=== PATIENT | female | born 1990 | race Two or more races ===

== ENCOUNTER 2025-10-09 05:47 | Inpatient (IN) | payer OTHER ==
[~2025-10-09] VITALS: Ht 165.1 cm; Wt 109.9 kg
--- NOTE | 2025-10-09 06:56 | ED.PDOC ---
GI ASSESSMENT HPI Comments This is a 35 year-old female who presents to the ED with a chief complaint of R rib pain, N/V, and constant headache as of 1800 last night. Patient reports R rib pain is constant, radiating to back, exacerbated with food intake, with no associated relieving factors. Patient additionally reports giving X2 weeks ago, . Patient has no other complaints at this time and otherwise denies further associated symptoms of dizziness, weakness, fever, diarrhea, or hematemesis. Chief Complaint: Rib Pain Time Seen by MD: 06:41 Reviewed Notes: Medications, Allergies Allergies: Coded Allergies: NO KNOWN ALLERGIES (Unverified , 10/09/25) Information Source: Patient Mode of Arrival: Ambulatory Timing: Hours Duration: Since onset Severity: Moderate Associated sign and symptoms: Nausea, Vomiting, Abdominal Pain, Other (headache) Past Medical History PAST MEDICAL HISTORY: HTN Surgical History: Denies all surgeries 1 Para 1 Social History Smoker: Non-Smoker Alcohol: Denies ETOH Use Drugs: Denies Drug Use Lives In: Home Constitutional: denies: chills, diaphoresis, fatigue, fever, malaise, sweats, weakness, others EENTM: denies: blurred vision, double vision, ear bleeding, ear discharge, ear drainage, ear pain, ear ringing, eye pain, eye redness, hearing loss, mouth pain, mouth swelling, nasal discharge, nose bleeding, nose congestion, nose pain, photophobia, tearing, throat pain, throat swelling, voice changes, others Respiratory: denies: cough, hemoptysis, orthopnea, SOB at rest, shortness of breath, SOB with excertion, stridor, wheezing, others Cardiovascular: denies: chest pain, dizzy spells, diaphoresis, Dyspnea on exertion, edema, irregular heart beat, left arm pain, lightheadedness, palpitati ons, PND, syncope, others Gastrointestinal: reports: abdominal pain, nausea, vomiting; denies: abdomen distended, blood streaked bowels, constipated, diarrhea, dysphagia, difficulty swallowing, hematemesis, melena, poor appetite, poor fluid intake, rectal bleeding, rectal pain, others Genitourinary: denies: abnormal vagina bleeding, burning, dyspareunia, dysuria, flank pain, frequency, hematuria, incontinence, pain, , vagina discharge, urgency, others Neurological: reports: headache; denies: dizziness, fainting, left sided numbness, left sided weakness, numbness, paresthesia, pre-existing deficit, right sided numbness, right sided weakness, seizure, speech problems, tingling, tremors, weakness, others Musculoskeletal: denies: back pain, gout, joint pain, joint swelling, muscle pain, muscle stiffness, neck pain, others Integumetry: denies: bruises, change in color, change in hair/nails, dryness, laceration, lesions, lumps, rash, wounds, others Allergic/Immunocompromised: denies: Difficulty Healing, Frequent Infections, Hives, Itching, others Hematologic/Lymphatic: denies: anemia, blood clots, easy bleeding, easy bruising, swollen glands, others Endocrine: denies: excessive hunger, excessive sweating, excessive thirst, excessive urination, flushing, intolerance to cold, intolerance to heat, unexplained weight gain, unexplained weight loss, others Psychiatric: denies: anxiety, bipolar disorder, depression, hopeless, panic disorder, schizophrenia, sleepless, suicidal, others All Other Systems: Reviewed and Negative Physical Exam General Appearance: Mild Distress HEENT: Pharynx Normal Neck: Normal Inspection Respiratory: No Respiratory Distress Cardiovascular: No Edema Breast Exam: Deferred Gastrointestinal: RUQ, Tenderness Genitalia: Deferred Pelvic: Deferred Rectal: Deferred Extremities: No pedal edema Neurologic: No Motor Deficits Cerebellar Function: NOT DONE Reflexes: NOT DONE Skin: Normal Color Lymphatic: NOT DONE Was a procedure done? Was a procedure done?: No GI differential Dx Differential Diagnosis: Constipation, Gastritis/PUD, Gastroenteritis, Dehydration, Food Poisoning, Bacterial, Parasitic, Viral X-Ray, Labs, Meds, VS Vital Signs Date Time Temp Pulse Resp B/P (MAP) Pulse Ox O2 Delivery O2 Flow Rate FiO2 10/09/25 09:31 98.2 70 16 140/94 (109) 97 98.2 10/09/25 08:06 97 Room Air* 0 21 10/09/25 07:25 97.9 70 18 148/88 (108) 98 97.9 10/09/25 07:25 70 18 98 Room Air 10/09/25 05:48 97.7 83 18 149/103 97 97.7 Lab Test 10/09/25 07:14 Range/Units White Blood Count 7.9 4.4-10.8 10^3/uL Red Blood Count 5.28 H 4.0-5.20 10^6/uL Hemoglobin 13.6 12.2-16.2 g/dL Hematocrit 40.9 36.0-46.0 % Mean Corpuscular Volume 77.5 L 80.0-100.0 fL Mean Corpuscular Hemoglobin 25.8 L 28.0-32.0 pg Mean Corpuscular Hemoglobin Concent 33.3 32.0-36.0 g/dL Red Cell Distribution Width 14.2 11.8-14.3 % Platelet Count 226 140-450 10^3/uL Mean Platelet Volume 10.6 6.9-10.8 fL Neutrophils (%) (Auto) 72.1 37.0-80.0 % Lymphocytes (%) (Auto) 21.3 10.0-50.0 % Monocytes (%) (Auto) 3.7 0.0-12.0 % Eosinophils (%) (Auto) 2.5 0.0-7.0 % Basophils (%) (Auto) 0.4 0.0-2.0 % Neutrophils # (Auto) 5.7 1.6-8.6 10 ^3/uL Lymphocytes # (Auto) 1.7 0.4-5.4 10 ^3/uL Monocytes # (Auto) 0.3 0-1.3 10 ^3/uL Eosinophils # (Auto) 0.2 0-0.8 10 ^3/uL Basophils # (Auto) 0 0-0.2 10 ^3/uL Nucleated Red Blood Cells 0.0 % Sodium Level 141 136-145 mmol/L Potassium Level 4.0 3.5-5.1 mmol/L Chloride Level 102 98-107 mmol/L Carbon Dioxide Level 26 20-31 mmol/L Anion Gap 13 5-15 Blood Urea Nitrogen 11 9-23 mg/dL Creatinine 0.60 0.550-1.02 mg/dL Glomerular Filtration Rate Calc 120 >90 mL/min BUN/Creatinine Ratio 18.3 10.0-20.0 Serum Glucose 139 H 74-106 mg/dL Calcium Level 9.5 8.7-10.4 mg/dL Total Bilirubin 1.2 H 0.2-1.0 mg/dL Aspartate Amino Transferase (AST) 209 H 13-40 U/L Alanine Aminotransferase (ALT) 120 H 7-40 U/L Alkaline Phosphatase 145 H 46-116 U/L Total Protein 7.7 5.7-8.2 g/dL Albumin 4.6 3.2-4.8 g/dL Lipase 39 12-53 U/L Current Medications Medications (Trade) Dose Ordered Sig/[place] Route Start Time Stop Time Status Last Admin Sodium Chloride 1,000 ml @ 1,000 mls/hr Q1H ONCE IV 10/09/25 06:45 10/09/25 07:44 DC 10/09/25 08:07 Ondansetron HCl (Zofran) 4 mg ONCE ONCE IV 10/09/25 06:45 10/09/25 06:46 DC 10/09/25 08:07 Famotidine (Pepcid Injection) 20 mg ONCE ONCE IV 10/09/25 06:45 10/09/25 06:46 DC 10/09/25 08:07 Ketorolac Tromethamine (Toradol Injection) 15 mg ONCE ONCE IV 10/09/25 06:45 10/09/25 06:46 DC 10/09/25 08:07 Time of 1ST Reevaluation: 07:38 Reevaluation 1ST: Unchanged Patient Education/Counseling: Diagnosis, Treatment Family Education/Counseling: No Family Present SEPSIS Sepsis Screen Date sepsis recognized/suspect: Oct 09, 2025 Time Sepsis recognized/suspect: 0553 Recent Procedure: Yes ( X 2WEEKS AGO ) On Antibiotic Therapy: No Respiratory Rate >20: No Heart Rate >90: No Temp<36 C (96.8 F) or >38.3 C: No SBP <90 or MAP <65 mmHG: No New Acute Mental Status Change: No Is the patient on CPAP, BIPAP,: No Physician Orders Urinalysis (10/09/25 06:40) Gallbladder (10/09/25 06:40) Vital Signs Date Time Temp Pulse Resp B/P (MAP) Pulse Ox O2 Delivery O2 Flow Rate FiO2 10/09/25 09:31 98.2 70 16 140/94 (109) 97 98.2 10/09/25 08:06 97 Room Air* 0 21 10/09/25 07:25 97.9 70 18 148/88 (108) 98 97.9 10/09/25 07:25 70 18 98 Room Air 10/09/25 05:48 97.7 83 18 149/103 97 97.7 Laboratory Tests Test 10/09/25 07:14 White Blood Count 7.9 10^3/uL (4.4-10.8) Medications Medications Dose Ordered Sig/[place] Route Start Time Stop Time Status Last Admin Dose Admin Famotidine 20 mg ONCE ONCE IV 10/09/25 06:45 10/09/25 06:46 DC 10/09/25 08:07 Ketorolac Tromethamine 15 mg ONCE ONCE IV 10/09/25 06:45 10/09/25 06:46 DC 10/09/25 08:07 Ondansetron HCl 4 mg ONCE ONCE IV 10/09/25 06:45 10/09/25 06:46 DC 10/09/25 08:07 Sodium Chloride 1,000 ml @ 1,000 mls/hr Q1H ONCE IV 10/09/25 06:45 10/09/25 07:44 DC 10/09/25 08:07 Departure 1 Departure Time of Disposition: 10:16 (Patient presented with abdominal pain that was concerning for possible appendicits, gastritis, cholecystitis, colitis, gastroenteritis, sbo, or orther possible surgical emergency. Data: 1. I ordered and reviewed the result of at least 3 labs including a CBC, BMP, and Urinalysis. 2. I independently interpreted the following tests: Ultrasound is concerning for cholelithiasis.Risk:This patient has a high risk of morbidity due to further diagnostic testing or treatment and may suffer from an acute abdominal process disorder. Workup reveals cholelithiasis and intractable abdominal pain and patient should be admitted for further workup. and possible expert consultation. ) Impression: Primary Impression: Intractable abdominal pain Additional Impression: Cholelithiasis Disposition: ADMITTED INPATIENT Admit to: Med Surg Condition: Guarded Critical Care Note Critical Care Time?: No Stability Stability form required: No Heart Score Heart Score: Heart Score Response (Comments) Value History N/A 0 EKG N/A 0 Age N/A 0 Risk Factors N/A 0 Troponin N/A 0 Total 0 I personally scribed for ANNA MARIE KING MD ([email or web address]) on 10/09/25 at 06:56. Electronically submitted by Sully Ayoub ([email or web address]). ANNA MARIE KING MD Oct 09, 2025 06:56
[2025-10-09 07:42] LABS: Hematocrit 40.9 % (36.0-46.0); Hemoglobin 13.6 g/dL (12.2-16.2); Mean Corpuscular Hemoglobin 25.8 pg (28.0-32.0); Mean Corpuscular Volume 77.5 fL (80.0-100.0); Nucleated Red Blood Cells % 0.0 %
[2025-10-09 07:57] LABS: Albumin 4.6 g/dL (3.2-4.8); Anion Gap 13 (5-15); BUN/Creatinine Ratio 18.3 (10.0-20.0); Bilirubin, Total 1.2 mg/dL (0.2-1.0); Blood Urea Nitrogen 11 mg/dL (9-23); Calcium 9.5 mg/dL (8.7-10.4); Carbon Dioxide 26 mmol/L (20-31); Chloride 102 mmol/L (98-107); Potassium 4.0 mmol/L (3.5-5.1); Sodium 141 mmol/L (136-145); Total Protein 7.7 g/dL (5.7-8.2)
[2025-10-09 08:05] LABS: Alanine Aminotransferase 120 U/L (7-40); Alkaline Phosphatase 145 U/L (46-116); Glucose 139 mg/dL (74-106)
[2025-10-09] MEDS: SODIUM CHLORIDE 0.9% 1,000 ML IV ONE ×2 (08:07→12:01)
[2025-10-09] MEDS: ONDANSETRON HCL 4 MG/2 ML VIAL IV ONE (08:07)
[2025-10-09] MEDS: KETOROLAC TROMETH 30 MG/ML 1ML VIAL IV ONE (08:07)
[2025-10-09] MEDS: FAMOTIDINE (10MG/ML) 2ML VL IV ONE (08:07)
[2025-10-09] MEDS ORDERED: KETOROLAC TROMETH 30 MG/ML 1ML VIAL ONE (08:09)
[2025-10-09] MEDS ORDERED: ONDANSETRON HCL 4 MG/2 ML VIAL ONE (08:12)
[2025-10-09] MEDS ORDERED: FAMOTIDINE (10MG/ML) 2ML VL IV ONE (08:12)
--- NOTE | 2025-10-09 08:44 | DVH ---
Ultrasound gallbladder INDICATION: ruq pain Technique: 2-D real-time ultrasound was performed with axial and sagittal images submitted for evaluation. FINDINGS: Liver slightly enlarged measuring 18.4 cm without mass. Spleen normal in size. Multiple gallstones.. No biliary dilatation. Right kidney measures 13.9 cm normal in size without mass stone or hydronephrosis. Limited visualization of the pancreas due to overlying bowel gas. No free fluid. No abnormalities of the aorta or inferior vena cava. IMPRESSION: 1. Cholelithiasis without signs of cholecystitis or biliary obstruction. 2. Mildly enlarged fatty liver.
[2025-10-09 08:49] LABS: Lipase 39 U/L (12-53)
[2025-10-09] MEDS ORDERED: ONDANSETRON HCL 4 MG/2 ML VIAL IV PRN ×2 (10:45→19:45)
[2025-10-09] MEDS ORDERED: MORPHINE SULFATE INJ 2 MG/ml SYRG IV PRN (10:45)
--- NOTE | 2025-10-09 10:47 | DVHHPRES ---
History of Present Illness Resident Creating Document: KELLEY NOBLE History of Present Illness Ewelina Nava is a 35-year-old female patient who presents to ED with chief complaint of sharp right upper quadrant abdominal pain associated with nausea and nonbloody vomiting with food content emesis, and diarrhea which [id number] hours before her admission at 6:00 p.m., triggered by eating fatty foods, associated with chills. Patient reports recent delivery of her child two weeks before this admission. Denies any other associated symptoms Past medical history: Hypertension, gestational diabetes Surgical history: Denies Family history: Denies Social history: Lives in [place] with family (next of kin is mother). Denies current tobacco, alcohol and other drug abuse Allergies: Denies Home medication: vitamins and labetalol, iron supplements. Patient seen and examined at bedside. Currently has no new complaints, feels better after IV medication. Patient admitted for further evaluation. Past Medical History Per HPI Past Surgical History Per HPI Family History Per HPI Past Social History Per HPI Review of Systems Review of Systems Per HPI Allergies: Coded Allergies: NO KNOWN ALLERGIES (Unverified , 10/09/25) Exam Vital Signs Vital Signs Date Time Temp Pulse Resp B/P (MAP) Pulse Ox O2 Delivery O2 Flow Rate FiO2 10/09/25 09:31 98.2 70 16 140/94 (109) 97 98.2 10/09/25 08:06 Room Air* 0 21 Exam Patient lying in bed, in no acute distress General: Lucid, afebrile, mucosae are moist Cardiovascular: Normal S1 and S2. No murmurs, gallops or rubs Respiratory: Normal ventilation mechanics. Clear lung sounds on auscultation Abdomen: Soft, mild tenderness on palpation of right upper quadrant, rest of abdomen nontender, Hoover's sign is positive, no organomegaly, normal bowel sounds MSK/skin: Mobilizes 4 limbs. Skin is dry and warm Neurological: Oriented in 3 spheres. No motor no sensitive deficits. Pupils are isocoric and reactive Labs/Xrays Labs Test 10/09/25 08:35 10/09/25 07:14 Range/Units White Blood Count 7.9 4.4-10.8 10^3/uL Red Blood Count 5.28 H 4.0-5.20 10^6/uL Hemoglobin 13.6 12.2-16.2 g/dL Hematocrit 40.9 36.0-46.0 % Mean Corpuscular Volume 77.5 L 80.0-100.0 fL Mean Corpuscular Hemoglobin 25.8 L 28.0-32.0 pg Mean Corpuscular Hemoglobin Concent 33.3 32.0-36.0 g/dL Red Cell Distribution Width 14.2 11.8-14.3 % Platelet Count 226 140-450 10^3/uL Mean Platelet Volume 10.6 6.9-10.8 fL Neutrophils (%) (Auto) 72.1 37.0-80.0 % Lymphocytes (%) (Auto) 21.3 10.0-50.0 % Monocytes (%) (Auto) 3.7 0.0-12.0 % Eosinophils (%) (Auto) 2.5 0.0-7.0 % Basophils (%) (Auto) 0.4 0.0-2.0 % Neutrophils # (Auto) 5.7 1.6-8.6 10 ^3/uL Lymphocytes # (Auto) 1.7 0.4-5.4 10 ^3/uL Monocytes # (Auto) 0.3 0-1.3 10 ^3/uL Eosinophils # (Auto) 0.2 0-0.8 10 ^3/uL Basophils # (Auto) 0 0-0.2 10 ^3/uL Nucleated Red Blood Cells 0.0 % Sodium Level 141 136-145 mmol/L Potassium Level 4.0 3.5-5.1 mmol/L Chloride Level 102 98-107 mmol/L Carbon Dioxide Level 26 20-31 mmol/L Anion Gap 13 5-15 Blood Urea Nitrogen 11 9-23 mg/dL Creatinine 0.60 0.550-1.02 mg/dL Glomerular Filtration Rate Calc 120 >90 mL/min BUN/Creatinine Ratio 18.3 10.0-20.0 Serum Glucose 139 H 74-106 mg/dL Calcium Level 9.5 8.7-10.4 mg/dL Total Bilirubin 1.2 H 0.2-1.0 mg/dL Aspartate Amino Transferase (AST) 209 H 13-40 U/L Alanine Aminotransferase (ALT) 120 H 7-40 U/L Alkaline Phosphatase 145 H 46-116 U/L Total Protein 7.7 5.7-8.2 g/dL Albumin 4.6 3.2-4.8 g/dL Lipase 39 12-53 U/L SEPSIS Sepsis Screen Date sepsis recognized/suspect: Oct 09, 2025 Time Sepsis recognized/suspect: 0553 Recent Procedure: Yes ( X 2WEEKS AGO ) On Antibiotic Therapy: No Respiratory Rate >20: No Heart Rate >90: No Temp<36 C (96.8 F) or >38.3 C: No SBP <90 or MAP <65 mmHG: No New Acute Mental Status Change: No Is the patient on CPAP, BIPAP,: No Physician Orders Urinalysis (10/09/25 06:40) Gallbladder (10/09/25 06:40) Admit (10/09/25 10:42) Code Status (10/09/25 10:42) Acetaminophen Tablet (Tylenol Tablet) (10/09/25 10:45) Ondansetron Hcl (Zofran) (10/09/25 10:45) Complete Blood Count (10/10/25 04:00) Comprehensive Metabolic Panel (10/10/25 04:00) Npo (Nothing By Mouth) Diet (10/09/25 Lunch) Morphine Sulfate Injection (10/09/25 10:45) Lovenox 40mg (10/10/25 10:00) Oxygen By Nasal Cannula (10/09/25 10:42) Stat Ekg For Chest Pain (10/09/25 10:42) Notify Of Changes From Base (10/09/25 10:42) Emergency Manager For 24 Hours (10/09/25 10:42) Emergency Dysrhythmia Protocol (10/09/25 10:42) Rhythm Strips Once Every Shift (10/09/25 10:42) Vitamin D, 25-Hydroxy (10/09/25 10:42) Vitamin B12 (10/09/25 10:42) Urinalysis (10/09/25 10:42) Thyroid Stimulating Hormone (10/09/25 10:42) PTPTT (10/09/25 10:42) Phosphorus (10/09/25 10:42) Magnesium (10/09/25 10:42) Lipid Panel (10/09/25 10:42) Hemoglobin A1c (10/09/25 10:42) Drug Screen (10/09/25 10:42) NS (10/09/25 10:45) NS (10/09/25 10:45) Vital Signs Date Time Temp Pulse Resp B/P (MAP) Pulse Ox O2 Delivery O2 Flow Rate FiO2 10/09/25 09:31 98.2 70 16 140/94 (109) 97 98.2 10/09/25 08:06 97 Room Air* 0 21 10/09/25 07:25 97.9 70 18 148/88 (108) 98 97.9 10/09/25 07:25 70 18 98 Room Air 10/09/25 05:48 97.7 83 18 149/103 97 97.7 Laboratory Tests Test 10/09/25 07:14 White Blood Count 7.9 10^3/uL (4.4-10.8) Medications Medications Dose Ordered Sig/[place] Route Start Time Stop Time Status Last Admin Dose Admin Famotidine 20 mg ONCE ONCE IV 10/09/25 06:45 10/09/25 06:46 DC 10/09/25 08:07 20 MG Ketorolac Tromethamine 15 mg ONCE ONCE IV 10/09/25 06:45 10/09/25 06:46 DC 10/09/25 08:07 15 MG Ondansetron HCl 4 mg ONCE ONCE IV 10/09/25 06:45 10/09/25 06:46 DC 10/09/25 08:07 4 MG Sodium Chloride 1,000 ml @ 1,000 mls/hr Q1H ONCE IV 10/09/25 06:45 10/09/25 07:44 DC 10/09/25 08:07 1,000 MLS/HR Assessment/Plan Assessment/Plan ASSESSMENT Symptomatic cholelithiasis Transaminitis Microcytosis Dyslipidemia, newly diagnosed Prediabetes, newly diagnosed Morbid obesity PLAN Completed abdomen ultrasound which showed cholelithiasis without signs of cholecystitis/biliary obstruction. Mildly enlarged fatty liver Consulted surgical manager: Recommend cholecystectomy laparoscopic/laparotomy. Patient has no signs of sepsis, we will hold off on IV antibiotics (can be given preop by anesthesiologist) Patient presents lipid panel with dyslipidemia. Patient is less than 40 years of age, can not complete ASCVD risk calculation, patient will benefit from healthy lifestyle habits. Currently on insulin sliding scale Goals of care discussed with patient for over18 minutes: Full code status Discussed plan with Dr. Teran, patient and nurses: [facility]. Evaluated by surgical manager recommending cholecystectomy via laparoscopy/laparotomy due to symptomatic cholelithiasis associated with transaminitis. Plan discussed with: Patient, Other (Nurses) My Orders Orders - KELLEY NOBLE RESIDENT Procedure Category Date Status Time Admit ADMIT 10/09/25 Transmitted 10:42 Code Status CODE 10/09/25 Transmitted 10:42 Acetaminophen Tablet PHA 10/09/25 Logged (Tylenol Tablet) 10:45 Ondansetron Hcl PHA 10/09/25 Transmitted (Zofran) 10:45 Complete Blood Count LAB 10/10/25 Verified 04:00 Comprehensive LAB 10/10/25 Verified Metabolic Panel 04:00 Npo (Nothing By DIET 10/09/25 Transmitted Mouth) Diet Lunch Morphine Sulfate PHA 10/09/25 Transmitted Injection 10:45 Lovenox 40mg PHA 10/10/25 Transmitted 10:00 Oxygen By Nasal RT 10/09/25 Transmitted Cannula 10:42 Stat Ekg For Chest [facility] 10/09/25 In Process Pain 10:42 Notify Of Changes [facility] 10/09/25 In Process From Base 10:42 Emergency Manager For [facility] 10/09/25 In Process 24 Hours 10:42 Emergency Dysrhythmia [facility] 10/09/25 In Process Protocol 10:42 Rhythm Strips Once [facility] 10/09/25 In Process Every Shift 10:42 Vitamin D, 25-Hydroxy LAB 10/09/25 Transmitted 10:42 Vitamin B12 LAB 10/09/25 Transmitted 10:42 Urinalysis LAB 10/09/25 Transmitted 10:42 Thyroid Stimulating LAB 10/09/25 Transmitted Hormone 10:42 PTPTT LAB 10/09/25 Transmitted 10:42 Phosphorus LAB 10/09/25 Transmitted 10:42 Magnesium LAB 10/09/25 Transmitted 10:42 Lipid Panel LAB 10/09/25 Transmitted 10:42 Hemoglobin A1c LAB 10/09/25 Transmitted 10:42 Drug Screen LAB 10/09/25 Transmitted 10:42 NS PHA 10/09/25 Transmitted 10:45 NS PHA 10/09/25 Transmitted 10:45 Date of Service: Oct 09, 2025 Billing Provider: OTTO TERAN MD Common Visit Codes: [id number] INP/OBS CARE (HIGH) Secondary Visit Codes: [id number] CARE PLAN 30 MINUTES KELLEY NOBLE RESIDENT Oct 09, 2025 10:47
[2025-10-09 11:05] VITALS: PULSE 77; RESP 18; O2SAT 97
[2025-10-09 11:25] LABS: Urine Protein, UAD 1+ (Negative)
[2025-10-09] MEDS: SODIUM CHLORIDE 0.9% 1,000 ML IV SCH (12:01)
[2025-10-09 12:19] LABS: Magnesium 1.9 mg/dL (1.6-2.6)
[2025-10-09 12:20] LABS: HDL Cholesterol 44.0 mg/dL (40-59); Triglycerides 319.0 mg/dL (< 150)
[2025-10-09 12:21] LABS: Cholesterol 226.0 mg/dL (< 200)
[2025-10-09 12:40] LABS: INR 1.0 (0.9-1.15); Partial Thromboplastin Time 25.4 SEC (24.5-34.5); Prothrombin Time 10.6 sec (9.3-11.8)
--- NOTE | 2025-10-09 13:41 | DVHINCON2 ---
Consultation - Surgical Date Seen: Oct 09, 2025 Referring Physician Reason for Consultation Cholecystitis History of Present Illness History of Present Illness Mrs. Nava is a 35-year-old female who presents with right upper quadrant abdominal pain that radiates to the back that started last night. Pain is at a proximally 4/10 level right now. It was associated with nausea and vomiting. She has never had this in the past. Denies fevers, chills, acholic stools. Past Medical/Surgical History Past Medical/Surgical History Past medical history and past surgical history denies Family and Social History Family and Social History Family history noncontributory ETOH/T Ob/drugs denies Allergies and medications Allergies: Coded Allergies: NO KNOWN ALLERGIES (Unverified , 10/09/25) Review of systems Review of Systems: Deferred Examination Vital signs Vital Signs Date Time Temp Pulse Resp B/P (MAP) Pulse Ox O2 Delivery O2 Flow Rate FiO2 10/09/25 13:34 99.0 68 16 151/108 (122) 97 99.0 10/09/25 11:05 Room Air* 0 21 Medications Current Medications Medications (Trade) Dose Ordered Sig/[place] Route PRN Reason Start Time Stop Time Status Last Admin Acetaminophen (Tylenol Tablet) 325 mg Q4HP PRN PO MILD PAIN (1-3 PAIN SCALE) 10/09/25 10:45 Ondansetron HCl (Zofran) 4 mg Q4HP PRN IV NAUSEA / VOMITING 10/09/25 10:45 Morphine Sulfate 2 mg Q4HPRN PRN IV SEVERE PAIN (7-10 PAIN SCALE) 10/09/25 10:45 Enoxaparin Sodium (Lovenox) 40 mg DAILY SC 10/10/25 10:00 Sodium Chloride 1,000 ml @ 100 mls/hr Q10H IV 10/09/25 11:45 10/09/25 12:01 Laboratory Labs Test 10/09/25 11:50 10/09/25 08:35 10/09/25 07:14 Range/Units Prothrombin Time 10.6 9.3-11.8 sec Prothrombin Time INR 1.00 0.9-1.15 Activated Partial Thromboplast Time 25.4 24.5-34.5 SEC Urine Color Yellow Yellow Urine Clarity Clear Clear Urine pH 6.0 5.0-9.0 Urine Specific [place] 1.031 1.001-1.035 Urine Protein 1+ H Negative Urine Ketones Negative Negative Urine Blood Negative Negative /uL Urine Nitrite Negative Negative Urine Bilirubin Negative Negative Urine Urobilinogen 2 H Negative mg/dL Urine Leukocyte Esterase Negative Negative /uL Urine RBC 3 0 - 4 /hpf Urine Microscopic WBC 1 0-5 /HPF Urine Squamous Epithelial Cells Few <5 /hpf Urine Bacteria None seen None Seen /hpf Urine Mucus Few None Seen Urine Glucose Normal Normal mg/dL White Blood Count 7.9 4.4-10.8 10^3/uL Red Blood Count 5.28 H 4.0-5.20 10^6/uL Hemoglobin 13.6 12.2-16.2 g/dL Hematocrit 40.9 36.0-46.0 % Mean Corpuscular Volume 77.5 L 80.0-100.0 fL Mean Corpuscular Hemoglobin 25.8 L 28.0-32.0 pg Mean Corpuscular Hemoglobin Concent 33.3 32.0-36.0 g/dL Red Cell Distribution Width 14.2 11.8-14.3 % Platelet Count 226 140-450 10^3/uL Mean Platelet Volume 10.6 6.9-10.8 fL Neutrophils (%) (Auto) 72.1 37.0-80.0 % Lymphocytes (%) (Auto) 21.3 10.0-50.0 % Monocytes (%) (Auto) 3.7 0.0-12.0 % Eosinophils (%) (Auto) 2.5 0.0-7.0 % Basophils (%) (Auto) 0.4 0.0-2.0 % Neutrophils # (Auto) 5.7 1.6-8.6 10 ^3/uL Lymphocytes # (Auto) 1.7 0.4-5.4 10 ^3/uL Monocytes # (Auto) 0.3 0-1.3 10 ^3/uL Eosinophils # (Auto) 0.2 0-0.8 10 ^3/uL Basophils # (Auto) 0 0-0.2 10 ^3/uL Nucleated Red Blood Cells 0.0 % Sodium Level 141 136-145 mmol/L Potassium Level 4.0 3.5-5.1 mmol/L Chloride Level 102 98-107 mmol/L Carbon Dioxide Level 26 20-31 mmol/L Anion Gap 13 5-15 Blood Urea Nitrogen 11 9-23 mg/dL Creatinine 0.60 0.550-1.02 mg/dL Glomerular Filtration Rate Calc 120 >90 mL/min BUN/Creatinine Ratio 18.3 10.0-20.0 Serum Glucose 139 H 74-106 mg/dL Hemoglobin A1c 6.2 H <5.7 % A1C Calcium Level 9.5 8.7-10.4 mg/dL Phosphorus Level 3.6 2.4-5.1 mg/dL Magnesium Level 1.9 1.6-2.6 mg/dL Total Bilirubin 1.2 H 0.2-1.0 mg/dL Aspartate Amino Transferase (AST) 209 H 13-40 U/L Alanine Aminotransferase (ALT) 120 H 7-40 U/L Alkaline Phosphatase 145 H 46-116 U/L Total Protein 7.7 5.7-8.2 g/dL Albumin 4.6 3.2-4.8 g/dL Triglycerides Level 319 H < 150 mg/dL Cholesterol Level 226 H < 200 mg/dL LDL Cholesterol 137 H < 100 mg/dL HDL Cholesterol 44 40-59 mg/dL Lipase 39 12-53 U/L Thyroid Stimulating Hormone (TSH) 0.81 0.55-4.78 uIU/mL Examination: GENERAL:Normal (AAO x3), HEENT:Normal (No scleral icterus), LUNGS:Normal (Nonlabored breathing with symmetric expansion), ABDOMEN:Normal (Nondistended, soft, depressible, right upper quadrant tenderness, no rebound, no guarding) Problem List/Assessment/Plan Problems: (1) Cholecystitis with cholelithiasis Assessment and Plan Mrs. Nava is a 35-year-old female who presents with symptomatic cholelithiasis. Ultrasound shows gallbladder with many stones and without pericholecystic fluid or gallbladder wall thickening. T bili is within normal limits and no leukocytosis. Given that the pain has not completely subsided since yesterday I recommend laparoscopic cholecystectomy. Procedure, risks, benefits, complications, and alternatives were discussed with the patient. She would like to proceed with surgery. 1. On-call to OR for laparoscopic cholecystectomy, possible open 2. NPO Plan discussed with Plan discussed with: Patient Visit Coding Surgery Date of Service if different f: Oct 09, 2025 Billing Provider: KAREN SEGURA MD Surgery Visit Codes: 77229 - INP CONSULT <110 MIN KAREN SEGURA MD Oct 09, 2025 13:41
[2025-10-09 14:19] LABS: Amphetamine Screen, Urine Neg (NEGATIVE); Barbiturate Scree,Urine Neg (NEGATIVE); Benzodiazephine Screen, Urine Neg (NEGATIVE); Cocaine Screen, Urine Neg (NEGATIVE); Opiate Scree,Urine Neg (NEGATIVE); Phencyclidine Screen, Urine Neg (NEGATIVE)
[2025-10-09 14:25] LABS: Cannabinoid Screen, Urine Neg (NEGATIVE)
[2025-10-09 17:15] VITALS: BP 150/95; PULSE 70; RESP 21; TEMP 98.3; O2SAT 97
[2025-10-09] MEDS: ACETAMINOPHEN 325 MG TAB PO PRN (17:23)
[2025-10-09] MEDS ORDERED: DEXTROSE (50%) 50ML SYRG IV PRN (18:30)
[2025-10-09] MEDS ORDERED: LABE100T7 PO (19:05)
[2025-10-09] MEDS ORDERED: HYDROcodone-ACET 10/325MG TAB PO PRN (19:30)
[2025-10-09] MEDS ORDERED: HYDROcodone-ACET 5/325MG TAB PO PRN (19:30)
--- NOTE | 2025-10-09 19:38 | DVHOP2 ---
Operative Report - 2 Report Details Date: 10/09/25 Preop Diagnosis: Symptomatic cholelithiasis Postop Diagnosis: Early acute cholecystitis Surgeon: Bernard Mcnair MD Anesthesiologist: Curly jarvis CRNA Anesthesia: General Consent: The patient was informed of the risks and benefits of the procedure. These include but are not limited to complications of anesthesia, postoperative infection, incomplete relief of symptoms, recurrence of symptoms, damage to blood vessels, nerves and tendons, deep venous thrombosis, pulmonary embolism and possible need for repeat surgery in the future. Complications: None Estimated Blood Loss: 5 mL Findings: Hyperemic gallbladder, with normal anatomy. Fatty and enlarged liver Indications for Surgery: Symptomatic cholelithiasis causing right upper quadrant pain and discomfort Name of Procedure Performed Laparoscopic cholecystectomy Procedure Details Procedure Details: Upon arriving to the operating room the patient was transferred to the operating table and placed in the supine position with arms extended. General endotrache al anesthesia was induced. Time-out was observed. Patient was prepped and draped in the standard sterile surgical fashion with chlorhexidine. I then proceeded to make an infraumbilical curvilinear incision and dissected down to fascia. Once at the fascia I grasped the umbilical stalk with a Remy clamp and walked it down to the base. Once at the base of the umbilical stalk I gained entry into the peritoneal cavity utilizing Pham technique. I then placed a fascial retention stitch of 0 Vicryl in [id number] fashion and then introduced the Pham trocar. Peritoneal cavity was insufflated to 15 mmHg with toleration. I then inserted a 10 mm 30 degree laparoscope and surveyed the entry site, no injuries noted. Patient was then placed in the reverse Trendelenburg [id number] position. I then placed 3 additional 5 mm working ports at the epigastric area, right midclavicular subcostal area, and right flank area. Attention was now turned to the liver and gallbladder. The liver was fatty, an enlarged. Gallbladder appeared hyperemic. Gallbladder was then grasped at the fundus and retracted cephalad and towards the right shoulder. A 2nd retractor was placed in the infundibulum and retracted laterally and thus exposing Calot triangle. I then proceeded to incise the peritoneum at the base of the gallbladder and carried it down to mid gallbladder at the liver interface, on either side. I then proceeded to clear cholesterol angle off of all fibrous and fatty tissue. Once Calot triangle was fully skeletonized the only 2 structures entering the gallbladder, the cystic duct and cystic artery. Critical view of safety was obtained. I then proceeded to place 2 5 mm clips proximal on the artery and 1 distal. I then proceeded to milk the cystic duct for any stones, non felt. I then proceeded to place 3 5 mm clips proximal and 1 distal on the duct. I then transected the artery and then transected the duct. I then proceeded to remove the gallbladder off of the liver bed with cautery. I had very minimal bile spillage coming from the clip at the duct remnant/infundibular area. Gallbladder was then placed in the Endo-Catch bag and taken out of the peritoneal cavity under direct vision. I then directed my attention to the liver/gallbladder fossa area. I serially irrigated the fossa and under the liver and over the liver until effluent was clear. There was a small area of oozing coming from the liver bed that was cauterized. Hemostasis achieved. I then took a look at all the clips, they were in place. This concluded the intraperitoneal portion of the operation. All 5 mm working ports were taken out under direct view, no bleeding coming from abdominal wall. The peritoneal cavity was allowed to fully desufflate. The previously placed fascial retention stitch was closed. All port sites were closed with 4-0 Monocryl and Dermabond. All counts complete and correct at the end of the procedure. 0.25% Marcaine was used as local anesthetic. Patient tolerated the procedure well and was transferred to PACU in stable condition. Specimen: Gallbladder and contents Condition Stable Disposition Still a Patient BERNARD SEGURA MD Oct 09, 2025 19:38
[2025-10-09] MEDS ORDERED: hydrALAZINE HCL 20 MG/ML VL IV PRN (19:45)
[2025-10-09] MEDS ORDERED: HYDROmorphone HCL 2 MG/ML VL/or syr IV PRN (19:45)
[2025-10-09] MEDS ORDERED: METOCLOPRAMIDE HCL 5MG/ml INJ 2ml VIAL IV PRN (19:45)
[2025-10-09] MEDS: ACETAMINOPHEN IV 1000 MG/100ML (10MG/ML) IV ONE (19:53)
[2025-10-09 20:00] VITALS: PULSE 70; RESP 17; O2SAT 96
[2025-10-09 21:00] VITALS: BP_SYST 104; BP_SYST 136; BP_DIAS 63; BP_DIAS 98; PULSE 72; PULSE 75; RESP 16; RESP 17; TEMP 97.3; TEMP 98; O2SAT 96; O2SAT 99
[2025-10-09] MEDS: InsuLIN REG 1unit/0.01ml Soln (100units/ml) SC SCH (22:00)
[2025-10-09] MEDS: ACCU-CHEK COMFORT CURVE STRIP VI SCH (22:06)
[2025-10-09] MEDS: KETOROLAC TROMETH 30 MG/ML 1ML VIAL IV SCH (22:07)
[2025-10-09] MEDS: LABETALOL HCL 200 MG TAB PO SCH (22:13)
[2025-10-10] MEDS: ACETAMINOPHEN 325 MG TAB PO SCH (00:37)
[2025-10-10 01:00] VITALS: BP 132/88; PULSE 70; RESP 17; TEMP 97.3; O2SAT 96
[2025-10-10 05:00] VITALS: BP 141/94; PULSE 79; RESP 17; TEMP 98; O2SAT 97
[2025-10-10 06:56] LABS: Hematocrit 35.2 % (36.0-46.0); Hemoglobin 11.4 g/dL (12.2-16.2); Mean Corpuscular Hemoglobin 25.6 pg (28.0-32.0); Mean Corpuscular Volume 78.9 fL (80.0-100.0); Nucleated Red Blood Cells % 0.1 %
[2025-10-10 07:07] LABS: Albumin 3.6 g/dL (3.2-4.8); Anion Gap 14 (5-15); BUN/Creatinine Ratio 14.8 (10.0-20.0); Bilirubin, Total 1.1 mg/dL (0.2-1.0); Carbon Dioxide 25 mmol/L (20-31); Chloride 104 mmol/L (98-107); Glucose 96 mg/dL (74-106); Potassium 3.5 mmol/L (3.5-5.1); Sodium 143 mmol/L (136-145); Total Protein 6.2 g/dL (5.7-8.2)
[2025-10-10 07:10] LABS: Alanine Aminotransferase 142 U/L (7-40); Alkaline Phosphatase 167 U/L (46-116); Bilirubin, Direct 0.3 mg/dL (<0.3); Blood Urea Nitrogen 9 mg/dL (9-23); Calcium 8.1 mg/dL (8.7-10.4)
[2025-10-10 09:00] VITALS: BP_SYST 106; BP_SYST 141; BP_DIAS 67; BP_DIAS 93; PULSE 74; PULSE 79; RESP 18; RESP 20; TEMP 97.4; TEMP 97.5; O2SAT 97
[2025-10-10] MEDS: FERROUS SULFATE 325mg EC TAB PO SCH (09:05)
[2025-10-10] MEDS: ENOXAPARIN SOD 40 MG/0.4 ML SYRINGE SC SCH (09:07)
--- NOTE | 2025-10-10 11:59 | DVHPN2 ---
Progress Note - Surgical Date Seen: Oct 10, 2025 Post op day Post op day: 1 Subjective Patient reports: Feels better (Patient feeling well this morning, no abdominal pain complaints, tolerating diet, no nausea, no vomiting, afebrile, vitals stable) Review of Systems: Deferred Objective Vital signs Vital Sign Date Time Temp Pulse Resp B/P (MAP) Pulse Ox O2 Delivery O2 Flow Rate FiO2 10/10/25 09:06 79 141/93 10/10/25 09:00 97.5 18 97 97.5 10/10/25 07:50 Nasal Cannula* 2 28 Total Intake and Output 10/09/25 10/09/25 10/10/25 15:00 23:00 07:00 Intake Total 2000 ml 0 ml 500 ml Balance 2000 ml 0 ml 500 ml Medications Current Medications Medications Dose Ordered Sig/[place] Route Start Time Stop Time Status Last Admin Dose Admin Ondansetron HCl 4 mg Q4HP PRN IV 10/09/25 10:45 Enoxaparin Sodium 40 mg DAILY SC 10/10/25 10:00 10/10/25 09:07 40 MG Sodium Chloride 1,000 ml @ 100 mls/hr Q10H IV 10/09/25 11:45 10/09/25 22:07 100 MLS/HR Labetalol HCl 100 mg Q12HR PO 10/09/25 22:00 10/10/25 09:06 100 MG Ferrous Sulfate 325 mg BIDWM PO 10/10/25 08:00 10/10/25 09:05 325 MG Diagnostic Test (Pha) 1 strip ACHS 10/09/25 22:00 10/10/25 06:22 1 STRIP Insulin Human Regular ACHS SC 10/09/25 22:00 Dextrose 50 ml UD PRN IV 10/09/25 18:30 Acetaminophen 650 mg Q6HR PO 10/10/25 00:00 10/10/25 06:22 650 MG Ketorolac Tromethamine 15 mg Q8HR IV 10/09/25 22:00 10/14/25 21:59 10/10/25 06:23 15 MG Acetaminophen/ Hydrocodone Bitart 1 tab Q6HPRN PRN PO 10/09/25 19:30 Acetaminophen/ Hydrocodone Bitart 1 tab Q6HP PRN PO 10/09/25 19:30 Laboratory Laboratory Tests 10/10/25 04:52 Test 10/10/25 04:52 Range/Units Serum Glucose 96 74-106 mg/dL Examination: GENERAL:Normal (AAO x3), HEENT:Normal (No scleral icterus, neck supple), LUNGS:Normal (Nonlabored breathing with symmetric expansion), ABDOMEN:Normal (Nondistended, soft, depressible, incision sites with overlying skin glue and without surrounding signs of infection, appropriately tender), SKIN:Normal (No jaundice) Labs and/or images reviewed: Labs reviewed by me (No leukocytosis) Problem List/Assessment/Plan Problems: (1) Cholecystitis with cholelithiasis Assessment and Plan Mrs. Nava is a 35-year-old female who presented with early acute cholecystitis and is currently postop day 1 from laparoscopic cholecystectomy. Patient is doing well this morning, tolerated diet, ambulating, pain controlled. Patient is cleared for discharge. 1. Cleared for discharge per surgical standpoint 2. No lifting over 10 lb for 6 weeks 3. May shower starting today, soap and water okay to run over incision sites. No swimming and bathing for 2 weeks. 4. Low-fat diet 5. Tylenol and/or ibuprofen for baseline pain control, follow waist fitter's directions. 6. Recommend Matthews 5-325 mg 1 tab p.o. every 6 hours p.r.n. severe pain 7. Recommend MiraLax 1 packet daily PRN constipation times 10 days 8. No driving while taking narcotics 9. Follow-up with Dr. Alvarenga at [facility] in 2 weeks, please call for appointment My Orders My Orders Orders - KAREN SEGURA MD Procedure Category Date Status Time Obtain Consent For: ORDERS 10/09/25 Transmitted 13:24 Obtain Consent For TOM 10/09/25 In Process Anesthesia 13:24 Cardiac DIET 10/10/25 Transmitted Diet-2gna,Lofat,Lochol Breakfast Acetaminophen Tablet PHA 10/10/25 In Process (Tylenol Tablet) 00:00 Ketorolac Injection PHA 10/09/25 In Process (Toradol Injection) 22:00 Hydrocodone-Acet PHA 10/09/25 In Process 5/325mg Tab (Matthews 19:30 Hydrocodone-Acet PHA 10/09/25 In Process 10/325mg Tab (Matthews 19:30 Plan discussed with Plan discussed with: Patient Visit Coding Surgery Date of Service if different f: Oct 10, 2025 Billing Provider: KAREN SEGURA MD Surgery Visit Codes: 84167-FAPPAONDCY INP/OBS CARE(HIGH) KAREN SEGURA MD Oct 10, 2025 11:59
[2025-10-10 13:00] VITALS: BP 144/91; PULSE 65; RESP 18; TEMP 98.3; O2SAT 95
[2025-10-10] MEDS ORDERED: NALO4SPR2 (14:23)
[2025-10-10] MEDS ORDERED: HYDR-4902 PO (14:23)
[2025-10-10] MEDS ORDERED: POLY335015 PO (14:23)
--- NOTE | 2025-10-10 14:27 | DVHDS2 ---
Discharge Summary Date of Admission Oct 09, 2025 at 10:42 Date of Discharge: Oct 10, 2025 Labs/Diagnostic Data: Laboratory Results Test 10/10/25 11:51 10/10/25 04:52 10/09/25 11:50 10/09/25 08:35 POC Glucose 128 mg/dl (70-106) White Blood Count 5.8 10^3/uL (4.4-10.8) Red Blood Count 4.46 10^6/uL (4.0-5.20) Hemoglobin 11.4 g/dL (12.2-16.2) Hematocrit 35.2 % (36.0-46.0) Mean Corpuscular Volume 78.9 fL (80.0-100.0) Mean Corpuscular Hemoglobin 25.6 pg (28.0-32.0) Mean Corpuscular Hemoglobin Concent 32.5 g/dL (32.0-36.0) Red Cell Distribution Width 14.8 % (11.8-14.3) Platelet Count 173 10^3/uL (140-450) Mean Platelet Volume 10.4 fL (6.9-10.8) Neutrophils (%) (Auto) 60.1 % (37.0-80.0) Lymphocytes (%) (Auto) 30.0 % (10.0-50.0) Monocytes (%) (Auto) 4.7 % (0.0-12.0) Eosinophils (%) (Auto) 4.6 % (0.0-7.0) Basophils (%) (Auto) 0.6 % (0.0-2.0) Neutrophils # (Auto) 3.5 10 ^3/uL (1.6-8.6) Lymphocytes # (Auto) 1.8 10 ^3/uL (0.4-5.4) Monocytes # (Auto) 0.3 10 ^3/uL (0-1.3) Eosinophils # (Auto) 0.3 10 ^3/uL (0-0.8) Basophils # (Auto) 0 10 ^3/uL (0-0.2) Nucleated Red Blood Cells 0.1 % Sodium Level 143 mmol/L (136-145) Potassium Level 3.5 mmol/L (3.5-5.1) Chloride Level 104 mmol/L (98-107) Carbon Dioxide Level 25 mmol/L (20-31) Anion Gap 14 (5-15) Blood Urea Nitrogen 9 mg/dL (9-23) Creatinine 0.61 mg/dL (0.550-1.02) Glomerular Filtration Rate Calc 119 mL/min (>90) BUN/Creatinine Ratio 14.8 (10.0-20.0) Serum Glucose 96 mg/dL (74-106) Calcium Level 8.1 mg/dL (8.7-10.4) Total Bilirubin 1.1 mg/dL (0.2-1.0) Direct Bilirubin 0.3 mg/dL (<0.3) Aspartate Amino Transferase (AST) 130 U/L (13-40) Alanine Aminotransferase (ALT) 142 U/L (7-40) Alkaline Phosphatase 167 U/L (46-116) Total Protein 6.2 g/dL (5.7-8.2) Albumin 3.6 g/dL (3.2-4.8) Prothrombin Time 10.6 sec (9.3-11.8) Prothrombin Time INR 1.00 (0.9-1.15) Activated Partial Thromboplast Time 25.4 SEC (24.5-34.5) Urine Color Yellow (Yellow) Urine Clarity Clear (Clear) Urine pH 6.0 (5.0-9.0) Urine Specific [place] 1.031 (1.001-1.035) Urine Protein 1+ (Negative) Urine Ketones Negative (Negative) Urine Blood Negative /uL (Negative) Urine Nitrite Negative (Negative) Urine Bilirubin Negative (Negative) Urine Urobilinogen 2 mg/dL (Negative) Urine Leukocyte Esterase Negative /uL (Negative) Urine RBC 3 /hpf (0 - 4) Urine Microscopic WBC 1 /HPF (0-5) Urine Squamous Epithelial Cells Few /hpf (<5) Urine Bacteria None seen /hpf (None Seen) Urine Mucus Few (None Seen) Urine Glucose Normal mg/dL (Normal) Urine Test Negative (Negative) Urine Opiates Screen Neg (NEGATIVE) Urine Fentanyl Screen Neg (NEGATIVE) Urine Barbiturates Screen Neg (NEGATIVE) Urine Phencyclidine Screen Neg (NEGATIVE) Urine Amphetamines Screen Neg (NEGATIVE) Urine Benzodiazepines Screen Neg (NEGATIVE) Urine Cocaine Screen Neg (NEGATIVE) Urine Cannabinoids Screen Neg (NEGATIVE) Test 10/09/25 07:14 Hemoglobin A1c 6.2 % A1C (<5.7) Phosphorus Level 3.6 mg/dL (2.4-5.1) Magnesium Level 1.9 mg/dL (1.6-2.6) Triglycerides Level 319 mg/dL (< 150) Cholesterol Level 226 mg/dL (< 200) LDL Cholesterol 137 mg/dL (< 100) HDL Cholesterol 44 mg/dL (40-59) Lipase 39 U/L (12-53) Thyroid Stimulating Hormone (TSH) 0.81 uIU/mL (0.55-4.78) Other Laboratory Tests 10/10/25 04:52 Brief Hx & Hospital Course: 35-year-old young female with a known history of hypertension, morbid obesity class three who initially presented to the hospital with a right upper quadrant pain found to have symptomatic cholelithiasis. Patient underwent laparoscopic cholecystectomy. Patient's postoperatively did very well. Patient is currently cleared to be discharged. Patient is being discharged under stable condition with a close follow up as an outpatient with a general surgery. Consults/Reason for consult General surgery for symptomatic cholelithiasis. Operations or Procedures Laparoscopic cholecystectomy. Condition at Discharge: Stable Final Diagnosis/Problems List 1. Acute symptomatic cholelithiasis status post laparoscopic cholecystectomy 2. Hypertension 3. Morbid obesity classIII Discharge Disposition: Home SNF Discharge Will this Physician continue t: No Discharge Instruct/Medications Diet: Cardiac 2g Na,low cholest Activity: See Comment Activity comment: No driving, no signing legal documents no playing on machinery while on narcotics. Follow Up/Referral: Please follow up with the general surgery in 1-2 weeks Medications: [place], Narcan, MiraLax as prescribed. New Medications: Hydrocodone-Acetaminophen (Hydrocodone Bitartrate/AC 5-325 mg) 1 Tab Tab 1 TAB PO Q6HP PRN, #14 TAB Naloxone HCl (Narcan) 4 Mg/0.1 Ml Spr 4 MG NA MRI [employer] PROCEDURES TECHNOLOGIST, #2 SPRAY Polyethylene Glycol 3350 (Miralax) 17 Gm Pow 17 GM PO DAILYP PRN, #14 POW Continued Medications: Labetalol Hcl (Labetalol Hcl) 100 Mg Tab 1 TAB PO DAILY, #60 TAB 5 Refills Scheduled Labetalol Hcl (Labetalol Hcl), 1 TAB PO DAILY, (Reported) Naloxone HCl (Narcan), 4 MG NA MRI [employer] PROC[employer] TECHNOLOGIST Scheduled PRN Hydrocodone-Acetaminophen (Hydrocodone Bitartrate/AC 5-325 mg), 1 TAB PO Q6HP PRN Polyethylene Glycol 3350 (Miralax), 17 GM PO DAILYP PRN Discharge Statement: "Patient was advised to return to the ER or call 911 if any headaches, dizziness, shortness of breath, chest pain, abdominal pain, bleeding, fevers, or worsening of medical condition. Patient was counseled about treatment plan, medications, possible side effects, patientverbalized understanding. All questions were answered to the best of my ability. This discharge took greater then 30 minutes in planning, reviewing documentation, counseling the patient, and discussing with other team members." ASSESSMENT ASSESSMENT Assessment 1. Acute symptomatic cholelithiasis status post laparoscopic cholecystectomy 2. Hypertension 3. Morbid obesity classIII Date of Service: Oct 10, 2025 Billing Provider: MARGARET ARRIAGA MD Common Visit Codes: 35517-QOT/OBS DISCH DAY >30min MARGARET ARRIAGA MD Oct 10, 2025 14:27
[2025-10-10 14:33] VITALS: BP 144/91; PULSE 65; RESP 18; TEMP 98.3; O2SAT 95
[2025-10-10 17:00] VITALS: BP 150/99; PULSE 67; RESP 20; TEMP 97.8; O2SAT 97
== END 2025-10-10 17:00 | disposition home or self-care (01) | DRG 263 ==
LOC: ER 05:47 → OVERFLOW 10:42 → CENTRAL 16:06
PROVIDERS: ADMIT Student in an Organized Health Care Education/Training Program; ATTEND Student in an Organized Health Care Education/Training Program
PROC: 0FT44ZZ Resection of Gallbladder, Percutaneous Endoscopic Approach (ICD-10-PCS; principal; 2025-10-09 18:21)
DX: K80.00 Calculus of gallbladder with acute cholecystitis without obstruction (principal); E66.813 Obesity, class 3; I10 Essential (primary) hypertension; K76.0 Fatty (change of) liver, not elsewhere classified; Z68.41 Body mass index [BMI] 40.0-44.9, adult; E78.5 Hyperlipidemia, unspecified; R73.03 Prediabetes; R74.01 Elevation of levels of liver transaminase levels
CPT/HCPCS: 36415; 76705; 80053; 80061; 80307; 81001; 81025; 82248; 82306; 82607; 82962; 83036; 83690; 83735; 84100; 84443; 85025; 85610; 85730; 96374; 96375; G0378; J0131; J0694; J1885; J2405; J3490